=== PATIENT | female | born 1960 | race African-American/Black ===

== ENCOUNTER 2016-12-09 13:53 | Inpatient (IN) | payer MEDICAID, OTHER ==
[~2016-12-09] VITALS: Ht 170.2 cm; Wt 73.3 kg
[~2016-12-09 13:53] MED LIST: BENZ0.5T6 PO; DIPH50 PO
[2016-12-09] MEDS ORDERED: ACETAMINOPHEN 325 MG TABLET PO PRN (16:15)
[2016-12-09] MEDS ORDERED: PROMETHAZINE HCL 25 MG TABLET PO PRN (16:15)
[2016-12-09] MEDS ORDERED: MAG HYDROX/AL HYDROX/SIMETH ES 30 ML SUSPENSION UDCUP PO PRN (16:15)
[2016-12-09] MEDS ORDERED: HydrOXYzine PAMOATE 50 MG CAPSULE PO PRN (16:15)
[2016-12-09] MEDS ORDERED: FluPHENAZine DECANOATE 25 MG/ML IM ONE (16:15)
[2016-12-09] MEDS ORDERED: ZOLPIDEM TARTRATE 10 MG TABLET PO PRN (16:15)
[2016-12-09] MEDS ORDERED: GuaiFENesin/D-METHORPHAN [SUGAR-FREE] 200-20MG/10 ML SYRUP UDCUP PO PRN (16:15)
[2016-12-09] MEDS ORDERED: TUBERCULIN, PURIFIED PROTEIN DERIVATIVE 5 TU/0.1 ML SYG ID ONE (16:15)
[2016-12-09] MEDS ORDERED: MAGNESIUM HYDROXIDE SUSPENSION 30 ML UDCUP PO PRN (16:15)
[2016-12-09] MEDS ORDERED: LOPERAMIDE HCL 2 MG CAPSULE PO PRN (16:15)
[2016-12-09] MEDS: THIAMINE HCL 100 MG TABLET PO SCH (17:49)
[2016-12-09] MEDS: BENZTROPINE MESYLATE 2 MG TABLET PO SCH (18:02)
[2016-12-09] MEDS ORDERED: INFLUENZA VIRUS VACCINE QVS 2016-17 (3YR+)/PF 60 MCG/0.5 ML SYRINGE IM ONE (18:30)
[2016-12-09 18:31] VITALS: BP 129/89
[2016-12-09] MEDS ORDERED: FluPHENAZine HCL 5 MG TABLET PO SCH (21:00)
[2016-12-10 07:05] VITALS: BP 120/72
[2016-12-10 08:25] LABS: BASOPHILS % (AUTO) 0.8 % (0.0-2.0); EOSINOPHILS % (AUTO) 1.6 % (1.0-6.0); HEMATOCRIT 42.2 % (36-46); HEMOGLOBIN 13.6 g/dL (12.0-16.0); LYMPHOCYTES # (AUTO) 1.4 K/uL (1.0-4.8); LYMPHOCYTES % (AUTO) 38.8 % (22.0-44.0); MEAN CORPUSCULAR HEMOGLOBIN 27.2 pg (26.0-34.0); MEAN CORPUSCULAR HGB CONC 32.2 G/dL (31.0-37.0); MEAN CORPUSCULAR VOLUME 84 fL (80-100); MONOCYTES # (AUTO) 0.4 K/uL (0.1-1.0); MONOCYTES % (AUTO) 10.5 % (2.0-9.0); NEUTROPHILS # (AUTO) 1.7 K/uL (1.8-7.7); NEUTROPHILS % (AUTO) 48.3 % (40.0-70.0); PLATELET COUNT (AUTO) 181 K/uL (150-450); RED CELL DISTRIBUTION WIDTH 15.9 % (11.5-14.5); WHITE BLOOD COUNT (AUTO) 3.6 K/uL (4.5-11.0)
[2016-12-10 08:52] VITALS: BP 103/66
[2016-12-10] MEDS: FOLIC ACID 1 MG TABLET PO SCH (09:02)
[2016-12-10] MEDS: THIAMINE HCL 100 MG TABLET PO SCH ×2 (09:02→16:28)
[2016-12-10] MEDS: BENZTROPINE MESYLATE 2 MG TABLET PO SCH ×3 (09:02→16:28)
[2016-12-10] MEDS: MULTIVITAMINS WITH MINERALS, THERAPEUTIC TABLET PO SCH (09:03)
[2016-12-10] MEDS: NICOTINE 7 MG/24 HOUR PATCH TD SCH (09:09)
[2016-12-10 09:19] LABS: HEMOGLOBIN A1C 5.9 % (4.5-6.2)
[2016-12-10 09:42] LABS: ALANINE AMINOTRANSFERASE 36 U/L (12-78); ALBUMIN 3.8 g/dL (3.4-5.0); ANION GAP 8 mmol/L (8-16); ASPARTATE AMINOTRANSFERASE 34 U/L (15-37); BILIRUBIN,TOTAL 0.7 mg/dL (0.1-1.0); CALCIUM, TOTAL 9.3 mg/dL (8.8-10.5); CARBON DIOXIDE 26 mmol/L (22-29); CHLORIDE 105 mmol/L (98-107); CHOL/HDL RATIO 1.8 (3.9-5.7); CREATININE 0.79 mg/dL (0.60-1.30); GLOMERULAR FILTR. RATE CALC > 60 mL/min (>60); POTASSIUM 3.7 mmol/L (3.5-5.1); SODIUM SERUM 139 mmol/L (136-145); THYROID STIMULATING HORMONE 1.69 uIU/mL (0.36-3.74); TOTAL PROTEIN, SERUM 8.8 g/dL (6.4-8.2); UREA NITROGEN, BLOOD 12 mg/dL (7-18)
[2016-12-10] MEDS: LORazepam 2 MG TABLET PO PRN (09:43)
[2016-12-10] MEDS ORDERED: PALIPERIDONE 3 MG ER TABLET PO PRN (12:45)
[2016-12-10] MEDS ORDERED: FluPHENAZine HCL 2.5 MG/ML INJ IM PRN (12:45)
[2016-12-10 16:22] VITALS: BP 117/76
[2016-12-10] MEDS: FluPHENAZine HCL 5 MG TABLET PO SCH (20:29)
[2016-12-10] MEDS ORDERED: PALIPERIDONE 6 MG ER TABLET PO SCH (21:00)
[2016-12-11 05:43] VITALS: BP 124/78
[2016-12-11 08:34] VITALS: BP 101/56
[2016-12-11] MEDS: NICOTINE 7 MG/24 HOUR PATCH TD SCH (09:30)
[2016-12-11] MEDS: THIAMINE HCL 100 MG TABLET PO SCH ×2 (09:30→16:12)
[2016-12-11] MEDS: MULTIVITAMINS WITH MINERALS, THERAPEUTIC TABLET PO SCH (09:31)
[2016-12-11] MEDS: BENZTROPINE MESYLATE 2 MG TABLET PO SCH ×3 (09:31→16:12)
[2016-12-11] MEDS: FOLIC ACID 1 MG TABLET PO SCH (09:31)
[2016-12-11 16:00] VITALS: BP 118/75
[2016-12-11] MEDS: LORazepam 2 MG TABLET PO PRN (16:12)
[2016-12-11] MEDS: FluPHENAZine HCL 5 MG TABLET PO SCH (20:09)
[2016-12-12 06:30] VITALS: BP 115/72
[2016-12-12 08:42] VITALS: BP 101/63
[2016-12-12] MEDS: MULTIVITAMINS WITH MINERALS, THERAPEUTIC TABLET PO SCH (08:44)
[2016-12-12] MEDS: BENZTROPINE MESYLATE 2 MG TABLET PO SCH ×3 (08:44→16:22)
[2016-12-12] MEDS: NICOTINE 7 MG/24 HOUR PATCH TD SCH (08:44)
[2016-12-12] MEDS: THIAMINE HCL 100 MG TABLET PO SCH ×2 (08:44→16:22)
[2016-12-12] MEDS: FOLIC ACID 1 MG TABLET PO SCH (08:44)
[2016-12-12 16:49] VITALS: BP 108/68
[2016-12-12] MEDS: FluPHENAZine HCL 5 MG TABLET PO SCH (20:49)
[2016-12-13 07:10] VITALS: BP 102/78
[2016-12-13 08:50] VITALS: BP 118/65
[2016-12-13] MEDS: THIAMINE HCL 100 MG TABLET PO SCH ×2 (09:13→16:04)
[2016-12-13] MEDS: MULTIVITAMINS WITH MINERALS, THERAPEUTIC TABLET PO SCH (09:13)
[2016-12-13] MEDS: BENZTROPINE MESYLATE 2 MG TABLET PO SCH ×3 (09:13→16:05)
[2016-12-13] MEDS: FOLIC ACID 1 MG TABLET PO SCH (09:13)
[2016-12-13] MEDS: NICOTINE 7 MG/24 HOUR PATCH TD SCH (09:13)
[2016-12-13] MEDS: LORazepam 2 MG TABLET PO PRN (09:14)
[2016-12-13 16:09] VITALS: BP 112/69
[2016-12-13] MEDS ORDERED: FLUP2.5 PO (16:48)
[2016-12-13] MEDS ORDERED: BENZ2TAB10 PO (16:48)
[2016-12-13] MEDS ORDERED: FLUP5 PO (16:48)
[2016-12-13] MEDS: FluPHENAZine HCL 5 MG TABLET PO SCH (20:16)
[2016-12-14 06:32] VITALS: BP 114/71
[2016-12-14] MEDS: THIAMINE HCL 100 MG TABLET PO SCH (08:46)
[2016-12-14] MEDS: MULTIVITAMINS WITH MINERALS, THERAPEUTIC TABLET PO SCH (08:46)
[2016-12-14 08:47] VITALS: BP 100/62
[2016-12-14] MEDS: NICOTINE 7 MG/24 HOUR PATCH TD SCH (08:47)
[2016-12-14] MEDS: BENZTROPINE MESYLATE 2 MG TABLET PO SCH ×2 (08:47→12:53)
[2016-12-14] MEDS: FOLIC ACID 1 MG TABLET PO SCH (08:47)
[2016-12-14] MEDS ORDERED: NALTREXONE HCL 50 MG TABLET PO SCH (09:00)
[2016-12-14] MEDS ORDERED: BENZ2TAB10 PO (12:32)
[2016-12-14] MEDS ORDERED: FLUP5 PO (12:34)
[2016-12-14] MEDS ORDERED: FLUP2.5 PO (12:34)
[2016-12-14] MEDS ORDERED: NALT50TA10 PO (12:34)
[2016-12-23] MEDS ORDERED: FluPHENAZine DECANOATE 25 MG/ML IM SCH (09:00)
== END 2016-12-14 13:00 | disposition home or self-care (01) | DRG 750 ==
LOC: B3A 16:28 → EDSTATUS 16:30
PROVIDERS: ADMIT Psychiatry & Neurology Psychiatry; ATTEND Psychiatry & Neurology Psychiatry
PROC: 3E0234Z Introduction of Serum, Toxoid and Vaccine into Muscle, Percutaneous Approach (ICD-10-PCS; principal; 2016-12-10)
PROC: GZ51ZZZ Individual Psychotherapy, Behavioral (ICD-10-PCS; 2016-12-10)
DX: F20.0 Paranoid schizophrenia (principal); R45.851 Suicidal ideations; J44.9 Chronic obstructive pulmonary disease, unspecified; I10 Essential (primary) hypertension; G40.909 Epilepsy, unspecified, not intractable, without status epilepticus; B18.2 Chronic viral hepatitis C; E03.9 Hypothyroidism, unspecified; K59.00 Constipation, unspecified; G47.00 Insomnia, unspecified; F14.10 Cocaine abuse, uncomplicated; F17.210 Nicotine dependence, cigarettes, uncomplicated; Z71.51 Drug abuse counseling and surveillance of drug abuser; Z91.14 Patient's other noncompliance with medication regimen; Z88.8 Allergy status to other drugs, medicaments and biological substances; Z71.6 Tobacco abuse counseling; Z86.73 Personal history of transient ischemic attack (TIA), and cerebral infarction without residual deficits; Z23 Encounter for immunization
CPT/HCPCS: 83036; 84439; 84443; 86592; 90471; G0481; J2680

== ENCOUNTER 2018-12-29 18:46 | Emergency (ER) | payer MEDICAID ==
[~2018-12-29] VITALS: Ht 170.2 cm; Wt 54.5 kg
[~2018-12-29 18:46] MED LIST changes: -BENZ0.5T6 PO; +BENZ2TAB10 PO; -DIPH50 PO; +FLUP2.5 PO; +FLUP5 PO; +NALT50TA10 PO
[2018-12-29] MEDS ORDERED: DIPH25 PO (19:40)
[2018-12-29 20:01] LABS: APPEARANCE,URINE CLOUDY (CLEAR); BILIRUBIN,URINE NEGATIVE (NEGATIVE); GLUCOSE, URINE (UA) NEGATIVE (NEGATIVE); KETONES,URINE NEGATIVE (NEGATIVE); LEUKOCYTE ESTERASE ,URINE SMALL (NEGATIVE); NITRATE,URINE NEGATIVE (NEGATIVE); OCCULT BLOOD,URINE NEGATIVE (NEGATIVE); PROTEIN,URINE NEGATIVE (NEGATIVE)
[2018-12-29 20:24] LABS: BASOPHILS % (AUTO) 0.4 % (0.0-2.0); EOSINOPHILS % (AUTO) 1.9 % (1.0-6.0); HEMATOCRIT 36.5 % (36-46); HEMOGLOBIN 11.6 g/dL (12.0-16.0); LYMPHOCYTES # (AUTO) 1.2 K/uL (1.0-4.8); LYMPHOCYTES % (AUTO) 42.4 % (22.0-44.0); MEAN CORPUSCULAR HEMOGLOBIN 27.2 pg (26.0-34.0); MEAN CORPUSCULAR HGB CONC 31.9 G/dL (31.0-37.0); MEAN CORPUSCULAR VOLUME 85 fL (80-100); MONOCYTES # (AUTO) 0.3 K/uL (0.1-1.0); MONOCYTES % (AUTO) 10.1 % (2.0-9.0); NEUTROPHILS # (AUTO) 1.3 K/uL (1.8-7.7); NEUTROPHILS % (AUTO) 45.2 % (40.0-70.0); PLATELET COUNT (AUTO) 218 K/uL (150-450); RED BLOOD CELL COUNT(AUTO) 4.28 MIL/uL (4.00-5.20); RED CELL DISTRIBUTION WIDTH 14.1 % (11.5-14.5)
[2018-12-29 20:31] LABS: ANION GAP 3 mmol/L (8-16); CARBON DIOXIDE 31 mmol/L (22-29); CHLORIDE 105 mmol/L (98-107); CREATININE 0.94 mg/dL (0.60-1.30); GLOMERULAR FILTR. RATE CALC > 60 mL/min (>60); GLUCOSE,RANDOM 86 mg/dL (70-110); SODIUM SERUM 139 mmol/L (136-145); UREA NITROGEN, BLOOD 12 mg/dL (7-18)
[2018-12-29 20:35] LABS: RBC,URINE None Seen /HPF (0-2)
[2018-12-29 20:36] LABS: BACTERIA,URINE Moderate /HPF (None Seen); SQUAMOUS EPITHELIAL CELL,UR Moderate /LPF (None Seen)
[2018-12-29 20:37] LABS: ALANINE AMINOTRANSFERASE 15 U/L (12-78); ALBUMIN 3.2 g/dL (3.4-5.0); ALKALINE PHOSPHATASE 95 U/L (46-116); ASPARTATE AMINOTRANSFERASE 16 U/L (15-37); BILIRUBIN,TOTAL 0.2 mg/dL (0.1-1.0); LIPASE 136 U/L (73-393); TOTAL PROTEIN, SERUM 7.8 g/dL (6.4-8.2)
[2018-12-29 22:00] VITALS: BP 128/83
[2018-12-29] MEDS ORDERED: ONDANSETRON HCL 4 MG TABLET PO ONE (22:00)
[2018-12-29] MEDS ORDERED: ACETAMINOPHEN 325 MG TABLET PO ONE (22:00)
== END 2018-12-29 22:20 | disposition home or self-care (01) ==
LOC: EMS 18:47
DX: R10.84 Generalized abdominal pain (principal); R11.0 Nausea; J45.909 Unspecified asthma, uncomplicated; I10 Essential (primary) hypertension; F20.9 Schizophrenia, unspecified; F17.210 Nicotine dependence, cigarettes, uncomplicated; Z86.73 Personal history of transient ischemic attack (TIA), and cerebral infarction without residual deficits; Z88.8 Allergy status to other drugs, medicaments and biological substances
CPT/HCPCS: 36415; 80053; 81001; 83690; 84484; 85025; 87086; 93005; 99284; Q0162

== ENCOUNTER 2019-09-29 11:58 | Emergency (ER) | payer MEDICAID ==
[~2019-09-29] VITALS: Ht 167.6 cm; Wt 79.5 kg
[~2019-09-29 11:58] MED LIST changes: -BENZ2TAB10 PO; +DIPH25 PO; -NALT50TA10 PO
[2019-09-29 12:54] LABS: BASOPHILS % (AUTO) 0.6 % (0.0-2.0); EOSINOPHILS % (AUTO) 0.8 % (1.0-6.0); HEMOGLOBIN 11.7 g/dL (12.0-16.0); LYMPHOCYTES # (AUTO) 1.2 K/uL (1.0-4.8); LYMPHOCYTES % (AUTO) 35.2 % (22.0-44.0); MEAN CORPUSCULAR HEMOGLOBIN 27.4 pg (26.0-34.0); MEAN CORPUSCULAR HGB CONC 33.5 G/dL (31.0-37.0); MEAN CORPUSCULAR VOLUME 82 fL (80-100); MONOCYTES # (AUTO) 0.4 K/uL (0.1-1.0); MONOCYTES % (AUTO) 11.4 % (2.0-9.0); NEUTROPHILS # (AUTO) 1.7 K/uL (1.8-7.7); PLATELET COUNT (AUTO) 197 K/uL (150-450); RED BLOOD CELL COUNT(AUTO) 4.28 MIL/uL (4.00-5.20); RED CELL DISTRIBUTION WIDTH 15.5 % (11.5-14.5)
[2019-09-29 13:04] LABS: ANION GAP 8 mmol/L (8-16); CALCIUM, TOTAL 8.8 mg/dL (8.8-10.5); CARBON DIOXIDE 26 mmol/L (22-29); CHLORIDE 102 mmol/L (98-107); CREATININE 0.86 mg/dL (0.60-1.30); GLOMERULAR FILTR. RATE CALC > 60 mL/min (>60); GLUCOSE,RANDOM 84 mg/dL (70-110); POTASSIUM 3.3 mmol/L (3.5-5.1); SODIUM SERUM 136 mmol/L (136-145); UREA NITROGEN, BLOOD 12 mg/dL (7-18)
[2019-09-29 13:10] LABS: ALANINE AMINOTRANSFERASE 19 U/L (12-78); ALBUMIN 3.9 g/dL (3.4-5.0); ALKALINE PHOSPHATASE 95 U/L (46-116); ASPARTATE AMINOTRANSFERASE 22 U/L (15-37); BILIRUBIN,TOTAL 0.3 mg/dL (0.1-1.0); TOTAL PROTEIN, SERUM 8.5 g/dL (6.4-8.2)
[2019-09-29 14:41] VITALS: BP 128/76
[2019-09-29] MEDS ORDERED: IBUPROFEN 400 MG TABLET PO ONE (15:15)
[2019-09-29] MEDS ORDERED: LORazepam 1 MG TABLET PO ONE (15:15)
== END 2019-09-29 16:20 | disposition home or self-care (01) ==
LOC: EMS 12:02
DX: F20.9 Schizophrenia, unspecified (principal); M25.561 Pain in right knee; I10 Essential (primary) hypertension; J45.909 Unspecified asthma, uncomplicated; F17.210 Nicotine dependence, cigarettes, uncomplicated; Z86.73 Personal history of transient ischemic attack (TIA), and cerebral infarction without residual deficits; Z98.890 Other specified postprocedural states; Z79.899 Other long term (current) drug therapy; Z88.8 Allergy status to other drugs, medicaments and biological substances
CPT/HCPCS: 36415; 80053; 85025; 99284; G0480

== ENCOUNTER 2019-12-20 13:33 | Emergency (ER) | payer MEDICAID ==
[~2019-12-20] VITALS: Ht 170.2 cm; Wt 72.7 kg
[2019-12-20 17:35] VITALS: BP 146/86
== END 2019-12-20 17:49 | disposition home or self-care (01) ==
LOC: EMS 13:34
DX: H11.31 Conjunctival hemorrhage, right eye (principal); J45.909 Unspecified asthma, uncomplicated; I10 Essential (primary) hypertension; F20.9 Schizophrenia, unspecified; F17.210 Nicotine dependence, cigarettes, uncomplicated; Z86.73 Personal history of transient ischemic attack (TIA), and cerebral infarction without residual deficits; Z88.8 Allergy status to other drugs, medicaments and biological substances; Y04.2XXA Assault by strike against or bumped into by another person, initial encounter; Y93.89 Activity, other specified; Y92.89 Other specified places as the place of occurrence of the external cause; Y99.8 Other external cause status

== ENCOUNTER 2020-04-30 17:35 | Emergency (ER) | payer MEDICAID ==
[~2020-04-30] VITALS: Ht 170.2 cm; Wt 75.0 kg
[2020-04-30] MEDS ORDERED: LIDOCAINE 1%/EPI 1:200,000/PF 30 ML VIAL INJ ONE (18:30)
[2020-04-30] MEDS ORDERED: PERTUSS(ACELL),DIPH,TET VAC/PF 0.5 ML VIAL IM ONE (18:30)
[2020-04-30] MEDS ORDERED: MORPHINE SULFATE 4 MG/ML SYRINGE IVP ONE (20:00)
[2020-04-30 20:13] VITALS: BP 159/87
[2020-04-30] MEDS ORDERED: AMPICILLIN SODIUM/SULBACTAM NA 3 GM in SODIUM CHLORIDE 0.9% 100 ML IV ONE (20:30)
== END 2020-04-30 21:26 | disposition short-term general hospital (02) ==
LOC: EMS 17:35
DX: S02.40EA Zygomatic fracture, right side, initial encounter for closed fracture (principal); S02.40FA Zygomatic fracture, left side, initial encounter for closed fracture; S02.841A Fracture of lateral orbital wall, right side, initial encounter for closed fracture; S02.31XA Fracture of orbital floor, right side, initial encounter for closed fracture; S02.40CA Maxillary fracture, right side, initial encounter for closed fracture; S01.01XA Laceration without foreign body of scalp, initial encounter; S11.91XA Laceration without foreign body of unspecified part of neck, initial encounter; I10 Essential (primary) hypertension; J45.909 Unspecified asthma, uncomplicated; F20.9 Schizophrenia, unspecified; F17.210 Nicotine dependence, cigarettes, uncomplicated; Z88.8 Allergy status to other drugs, medicaments and biological substances; Y04.0XXA Assault by unarmed brawl or fight, initial encounter; Y93.89 Activity, other specified; Y92.89 Other specified places as the place of occurrence of the external cause; Y99.8 Other external cause status
CPT/HCPCS: 70450; 70486; 90471; 90715; 96374; 96375; 99173; 99285; J0295; J2270; J3490; J7050

== ENCOUNTER 2020-10-28 10:42 | Emergency (ER) | payer MEDICAID ==
[~2020-10-28] VITALS: Ht 172.7 cm; Wt 70.5 kg
[2020-10-28] MEDS ORDERED: DIPH25CA85 PO (10:49)
[2020-10-28 11:46] VITALS: BP 105/64
== END 2020-10-28 11:56 | disposition home or self-care (01) ==
LOC: EMS 10:50
DX: L84 Corns and callosities (principal); F20.9 Schizophrenia, unspecified; J45.909 Unspecified asthma, uncomplicated; I10 Essential (primary) hypertension; F17.210 Nicotine dependence, cigarettes, uncomplicated; Z88.8 Allergy status to other drugs, medicaments and biological substances
CPT/HCPCS: Z7502

== ENCOUNTER 2021-03-18 20:34 | Emergency (ER) | payer MEDICAID ==
[~2021-03-18] VITALS: Ht 170.2 cm; Wt 77.3 kg
[~2021-03-18 20:34] MED LIST changes: -DIPH25 PO; +DIPH25CA85 PO; -FLUP2.5 PO; -FLUP5 PO
[2021-03-18 21:48] LABS: BASOPHILS % (AUTO) 0.7 % (0.0-2.0); EOSINOPHILS % (AUTO) 2.1 % (1.0-6.0); HEMATOCRIT 36.4 % (36-46); HEMOGLOBIN 11.7 g/dL (12.0-16.0); LYMPHOCYTES # (AUTO) 1.2 K/uL (1.0-4.8); MEAN CORPUSCULAR HEMOGLOBIN 27.1 pg (26.0-34.0); MEAN CORPUSCULAR HGB CONC 32.1 G/dL (31.0-37.0); MEAN CORPUSCULAR VOLUME 84 fL (80-100); MONOCYTES # (AUTO) 0.3 K/uL (0.1-1.0); MONOCYTES % (AUTO) 10.2 % (2.0-9.0); NEUTROPHILS # (AUTO) 1.4 K/uL (1.8-7.7); PLATELET COUNT (AUTO) 216 K/uL (150-450); RED BLOOD CELL COUNT(AUTO) 4.33 MIL/uL (4.00-5.20); RED CELL DISTRIBUTION WIDTH 15.3 % (11.5-14.5)
[2021-03-18 21:59] LABS: ANION GAP 10 mmol/L (8-16); CALCIUM, TOTAL 8.7 mg/dL (8.8-10.5); CARBON DIOXIDE 25 mmol/L (22-29); CHLORIDE 102 mmol/L (98-107); CREATININE 0.89 mg/dL (0.60-1.30); GLOMERULAR FILTR. RATE CALC > 60 mL/min (>60); GLUCOSE,RANDOM 96 mg/dL (70-110); POTASSIUM 3.1 mmol/L (3.5-5.1); SODIUM SERUM 137 mmol/L (136-145); UREA NITROGEN, BLOOD 7 mg/dL (7-18)
[2021-03-18 22:06] LABS: ALANINE AMINOTRANSFERASE 121 U/L (12-78); ALBUMIN 3.7 g/dL (3.4-5.0); ALKALINE PHOSPHATASE 81 U/L (46-116); ASPARTATE AMINOTRANSFERASE 116 U/L (15-37); BILIRUBIN,TOTAL 0.4 mg/dL (0.1-1.0); TOTAL PROTEIN, SERUM 9.1 g/dL (6.4-8.2)
[2021-03-19] MEDS ORDERED: POTASSIUM CHLORIDE 20 MEQ ER TABLET PO ONE (00:15)
[2021-03-19 00:19] LABS: AMPHET/METH SCREEN,URINE POSITIVE (NEGATIVE); BARBITURATE SCREEN, URINE NEGATIVE (NEGATIVE); BENZODIAZEPINES SCREEN,URINE NEGATIVE (NEGATIVE); CANNABINOID SCREEN,URINE NEGATIVE (NEGATIVE); COCAINE SCREEN,URINE NEGATIVE (NEGATIVE); METHADONE SCREEN, URINE NEGATIVE (NEGATIVE); OPIATE SCREEN,URINE NEGATIVE (NEGATIVE)
[2021-03-19 00:23] LABS: PHENCYCLIDINE SCREEN,URINE POSITIVE (NEGATIVE)
[2021-03-19 01:10] VITALS: BP 152/107
== END 2021-03-19 02:23 | disposition home or self-care (01) ==
LOC: EMS 20:35
DX: F20.9 Schizophrenia, unspecified (principal); F16.10 Hallucinogen abuse, uncomplicated; F15.10 Other stimulant abuse, uncomplicated; J45.909 Unspecified asthma, uncomplicated; I10 Essential (primary) hypertension; F17.210 Nicotine dependence, cigarettes, uncomplicated; Z86.73 Personal history of transient ischemic attack (TIA), and cerebral infarction without residual deficits
CPT/HCPCS: 36415; 80053; 80307; 85025; 99283; G0480

== ENCOUNTER 2021-05-24 20:42 | Inpatient (IN) | payer MEDICAID ==
[~2021-05-24] VITALS: Ht 170.2 cm; Wt 69.7 kg
[2021-05-24] MEDS ORDERED: LORazepam 2 MG TABLET PO PRN (22:30)
[2021-05-24] MEDS ORDERED: OLANZapine 5 MG RAPDIS TABLET PO PRN (22:30)
[2021-05-24] MEDS ORDERED: ZOLPIDEM TARTRATE 10 MG TABLET PO PRN (22:30)
[2021-05-25 08:11] LABS: BASOPHILS % (AUTO) 0.7 % (0.0-2.0); EOSINOPHILS % (AUTO) 2.3 % (1.0-6.0); HEMATOCRIT 37.4 % (36-46); HEMOGLOBIN 12.1 g/dL (12.0-16.0); LYMPHOCYTES % (AUTO) 35.4 % (22.0-44.0); MEAN CORPUSCULAR HGB CONC 32.4 G/dL (31.0-37.0); MEAN CORPUSCULAR VOLUME 83 fL (80-100); MONOCYTES # (AUTO) 0.4 K/uL (0.1-1.0); NEUTROPHILS # (AUTO) 1.5 K/uL (1.8-7.7); NEUTROPHILS % (AUTO) 49.6 % (40.0-70.0); PLATELET COUNT (AUTO) 198 K/uL (150-450); RED BLOOD CELL COUNT(AUTO) 4.49 MIL/uL (4.00-5.20); RED CELL DISTRIBUTION WIDTH 15.5 % (11.5-14.5)
[2021-05-25 08:13] LABS: ANION GAP 9 mmol/L (8-16); CALCIUM, TOTAL 8.7 mg/dL (8.8-10.5); CARBON DIOXIDE 27 mmol/L (22-29); CHLORIDE 103 mmol/L (98-107); CREATININE 0.71 mg/dL (0.60-1.30); GLOMERULAR FILTR. RATE CALC > 60 mL/min (>60); GLUCOSE,RANDOM 94 mg/dL (70-110); POTASSIUM 3.6 mmol/L (3.5-5.1); SODIUM SERUM 139 mmol/L (136-145); UREA NITROGEN, BLOOD 7 mg/dL (7-18)
[2021-05-25 08:22] LABS: CHOL/HDL RATIO 2.5 (3.9-5.7)
[2021-05-25 08:29] LABS: ALANINE AMINOTRANSFERASE 143 U/L (12-78); ALBUMIN 3.1 g/dL (3.4-5.0); ALKALINE PHOSPHATASE 85 U/L (46-116); ASPARTATE AMINOTRANSFERASE 148 U/L (15-37); BILIRUBIN,TOTAL 0.4 mg/dL (0.1-1.0); CHOL/HDL RATIO 2.5 (3.9-5.7); CHOLESTEROL 182 mg/dL (131-200); FREE T4 (FREE THYROXINE) 0.99 ng/dL (0.76-1.46); HDL CHOLESTEROL 74 mg/dL (40-60); LDL CHOL (CALC.) 97 mg/dL (0-130); THYROID STIMULATING HORMONE 1.09 uIU/mL (0.36-3.74); TOTAL PROTEIN, SERUM 8.7 g/dL (6.4-8.2); TRIGLYCERIDES 57 mg/dL (15-150)
[2021-05-25 08:36] LABS: COVID AG,FIA SOURCE NASOPHARYNGEAL
[2021-05-25 16:15] VITALS: BP 121/82
[2021-05-25] MEDS ORDERED: LOPERAMIDE HCL 2 MG CAPSULE PO PRN (16:30)
[2021-05-25] MEDS ORDERED: PROMETHAZINE HCL 25 MG TABLET PO PRN (16:30)
[2021-05-25] MEDS ORDERED: GuaiFENesin/D-METHORPHAN [SUGAR-FREE] 200-20MG/10 ML SYRUP UDCUP PO PRN ×2 (16:30→22:45)
[2021-05-25] MEDS ORDERED: TUBERCULIN, PURIFIED PROTEIN DERIVATIVE 5 TU/0.1 ML SYRINGE ID ONE (16:30)
[2021-05-25] MEDS ORDERED: MAG HYDROX/AL HYDROX/SIMETH ES 30 ML SUSPENSION UDCUP PO PRN (16:30)
[2021-05-25] MEDS ORDERED: MAGNESIUM HYDROXIDE SUSPENSION 30 ML UDCUP PO PRN (16:30)
[2021-05-25] MEDS ORDERED: HydrOXYzine PAMOATE 50 MG CAPSULE PO PRN (16:30)
[2021-05-25] MEDS: THIAMINE 100 MG TABLET PO SCH (17:32)
[2021-05-25 18:45] VITALS: BP 137/84
[2021-05-25 18:50] VITALS: BP 137/84
[2021-05-25] MEDS ORDERED: PALIPERIDONE PALMITATE 234 MG/1.5 ML SYRINGE IM ONE (19:30)
[2021-05-25] MEDS: CEPHALEXIN MONOHYDRATE 500 MG CAPSULE PO SCH (20:54)
[2021-05-25] MEDS: MELATONIN 5 MG TABLET PO SCH (20:54)
[2021-05-25] MEDS: DIVALPROEX SODIUM 500 MG ER TABLET PO SCH (20:54)
[2021-05-25] MEDS: OLANZapine 5 MG RAPDIS TABLET PO SCH (20:55)
[2021-05-26 06:13] LABS: CHOL/HDL RATIO 2.4 (3.9-5.7); FREE T4 (FREE THYROXINE) 0.95 ng/dL (0.76-1.46); THYROID STIMULATING HORMONE 1.09 uIU/mL (0.36-3.74)
[2021-05-26 06:26] LABS: HEMOGLOBIN A1C 5.9 % (3.8-5.6)
[2021-05-26 09:00] VITALS: BP 107/68
[2021-05-26] MEDS: FOLIC ACID 1 MG TABLET PO SCH (09:44)
[2021-05-26] MEDS: OMEGA-3/DHA/EPA/FISH OIL 1,000 MG CAPSULE PO SCH (09:44)
[2021-05-26] MEDS: NALTREXONE HCL 50 MG TABLET PO SCH (09:44)
[2021-05-26] MEDS: CEPHALEXIN MONOHYDRATE 500 MG CAPSULE PO SCH ×4 (09:44→20:48)
[2021-05-26] MEDS: MULTIVITAMINS WITH MINERALS, THERAPEUTIC TABLET PO SCH (09:44)
[2021-05-26] MEDS: THIAMINE 100 MG TABLET PO SCH ×2 (09:44→16:27)
[2021-05-26 12:40] VITALS: BP 112/72
[2021-05-26] MEDS: ACETAMINOPHEN 325 MG TABLET PO PRN (13:56)
[2021-05-26 16:40] VITALS: BP 113/65
[2021-05-26] MEDS: MELATONIN 5 MG TABLET PO SCH (20:48)
[2021-05-26] MEDS: OLANZapine 5 MG RAPDIS TABLET PO SCH (20:48)
[2021-05-26] MEDS: DIVALPROEX SODIUM 500 MG ER TABLET PO SCH (20:49)
[2021-05-27 08:06] LABS: RPR QUANT. (TITER) 1:32 (NonRea<1:1)
[2021-05-27 08:14] VITALS: BP 134/92
[2021-05-27] MEDS: CEPHALEXIN MONOHYDRATE 500 MG CAPSULE PO SCH ×4 (09:40→20:47)
[2021-05-27] MEDS: ZINC SULFATE 220 MG CAPSULE PO SCH (09:40)
[2021-05-27] MEDS: ASCORBIC ACID 500 MG TABLET PO SCH (09:41)
[2021-05-27] MEDS: FOLIC ACID 1 MG TABLET PO SCH (09:41)
[2021-05-27] MEDS: ACETAMINOPHEN 325 MG TABLET PO PRN (09:41)
[2021-05-27] MEDS: OMEGA-3/DHA/EPA/FISH OIL 1,000 MG CAPSULE PO SCH (09:43)
[2021-05-27] MEDS: THIAMINE 100 MG TABLET PO SCH ×2 (09:44→16:26)
[2021-05-27] MEDS: NALTREXONE HCL 50 MG TABLET PO SCH (09:44)
[2021-05-27] MEDS: MULTIVITAMINS WITH MINERALS, THERAPEUTIC TABLET PO SCH (09:46)
[2021-05-27 16:00] VITALS: BP 115/85
[2021-05-27] MEDS: PENICILLIN G BENZATHINE LA 2,400,000 UNITS/4 ML SYRINGE IM SCH (19:48)
[2021-05-27 20:00] VITALS: BP 119/89
[2021-05-27] MEDS: MELATONIN 5 MG TABLET PO SCH (20:47)
[2021-05-27] MEDS: OLANZapine 5 MG RAPDIS TABLET PO SCH (20:47)
[2021-05-27] MEDS: DIVALPROEX SODIUM 500 MG ER TABLET PO SCH (20:47)
[2021-05-27] MEDS: TraZODone HCL 50 MG TABLET PO SCH (22:04)
[2021-05-28] MEDS: ASCORBIC ACID 500 MG TABLET PO SCH (08:35)
[2021-05-28] MEDS: ACETAMINOPHEN 325 MG TABLET PO PRN (08:35)
[2021-05-28] MEDS: THIAMINE 100 MG TABLET PO SCH ×2 (08:35→16:15)
[2021-05-28] MEDS: FOLIC ACID 1 MG TABLET PO SCH (08:36)
[2021-05-28] MEDS: OMEGA-3/DHA/EPA/FISH OIL 1,000 MG CAPSULE PO SCH (08:36)
[2021-05-28] MEDS: MULTIVITAMINS WITH MINERALS, THERAPEUTIC TABLET PO SCH (08:36)
[2021-05-28] MEDS: CEPHALEXIN MONOHYDRATE 500 MG CAPSULE PO SCH ×4 (08:36→20:54)
[2021-05-28] MEDS: NALTREXONE HCL 50 MG TABLET PO SCH ×2 (08:38→09:08)
[2021-05-28] MEDS: ZINC SULFATE 220 MG CAPSULE PO SCH (08:39)
[2021-05-28 08:55] VITALS: BP 107/64
[2021-05-28] MEDS: TraZODone HCL 50 MG TABLET PO SCH (20:41)
[2021-05-28] MEDS: OLANZapine 5 MG RAPDIS TABLET PO SCH (20:41)
[2021-05-28] MEDS: MELATONIN 5 MG TABLET PO SCH (20:41)
[2021-05-28] MEDS: DIVALPROEX SODIUM 500 MG ER TABLET PO SCH (20:41)
[2021-05-29] MEDS: PALIPERIDONE PALMITATE 156 MG/ML SYRINGE IM ONE ×2 (10:08→10:20)
[2021-05-29] MEDS: NALTREXONE HCL 50 MG TABLET PO SCH (10:08)
[2021-05-29] MEDS: ZINC SULFATE 220 MG CAPSULE PO SCH (10:08)
[2021-05-29] MEDS: CEPHALEXIN MONOHYDRATE 500 MG CAPSULE PO SCH ×5 (10:10→21:10)
[2021-05-29] MEDS: THIAMINE 100 MG TABLET PO SCH ×2 (10:10→16:30)
[2021-05-29] MEDS: FOLIC ACID 1 MG TABLET PO SCH (10:10)
[2021-05-29] MEDS: OMEGA-3/DHA/EPA/FISH OIL 1,000 MG CAPSULE PO SCH (10:10)
[2021-05-29] MEDS: ASCORBIC ACID 500 MG TABLET PO SCH (10:10)
[2021-05-29] MEDS: MULTIVITAMINS WITH MINERALS, THERAPEUTIC TABLET PO SCH (10:11)
[2021-05-29] MEDS: OLANZapine 5 MG RAPDIS TABLET PO SCH (21:00)
[2021-05-29] MEDS: MELATONIN 5 MG TABLET PO SCH (21:00)
[2021-05-29] MEDS: TraZODone HCL 50 MG TABLET PO SCH (21:00)
[2021-05-29] MEDS: DIVALPROEX SODIUM 500 MG ER TABLET PO SCH (21:00)
[2021-05-30] MEDS: NALTREXONE HCL 50 MG TABLET PO SCH (09:00)
[2021-05-30] MEDS: FOLIC ACID 1 MG TABLET PO SCH (09:00)
[2021-05-30] MEDS: OMEGA-3/DHA/EPA/FISH OIL 1,000 MG CAPSULE PO SCH (09:00)
[2021-05-30] MEDS: ZINC SULFATE 220 MG CAPSULE PO SCH (09:00)
[2021-05-30] MEDS: MULTIVITAMINS WITH MINERALS, THERAPEUTIC TABLET PO SCH (09:00)
[2021-05-30] MEDS: THIAMINE 100 MG TABLET PO SCH ×2 (09:00→16:43)
[2021-05-30] MEDS: ASCORBIC ACID 500 MG TABLET PO SCH (09:00)
[2021-05-30] MEDS: CEPHALEXIN MONOHYDRATE 500 MG CAPSULE PO SCH ×4 (09:00→21:00)
[2021-05-30] MEDS: OLANZapine 5 MG RAPDIS TABLET PO SCH (21:00)
[2021-05-30] MEDS: TraZODone HCL 50 MG TABLET PO SCH (21:00)
[2021-05-30] MEDS: MELATONIN 5 MG TABLET PO SCH (21:00)
[2021-05-30] MEDS: FluPHENAZine HCL 5 MG TABLET PO SCH (21:00)
[2021-05-30] MEDS: DIVALPROEX SODIUM 500 MG ER TABLET PO SCH (21:00)
[2021-05-31] MEDS: CEPHALEXIN MONOHYDRATE 500 MG CAPSULE PO SCH ×4 (08:08→21:16)
[2021-05-31] MEDS: FluPHENAZine HCL 5 MG TABLET PO SCH ×2 (08:09→21:00)
[2021-05-31 08:55] VITALS: BP 143/93
[2021-05-31] MEDS: ASCORBIC ACID 500 MG TABLET PO SCH (09:00)
[2021-05-31] MEDS: FOLIC ACID 1 MG TABLET PO SCH (09:00)
[2021-05-31] MEDS: MULTIVITAMINS WITH MINERALS, THERAPEUTIC TABLET PO SCH (09:00)
[2021-05-31] MEDS: ZINC SULFATE 220 MG CAPSULE PO SCH (09:00)
[2021-05-31] MEDS: OMEGA-3/DHA/EPA/FISH OIL 1,000 MG CAPSULE PO SCH (09:00)
[2021-05-31] MEDS: NALTREXONE HCL 50 MG TABLET PO SCH (09:00)
[2021-05-31] MEDS: THIAMINE 100 MG TABLET PO SCH ×2 (09:00→16:30)
[2021-05-31 16:54] VITALS: BP 141/78
[2021-05-31 16:56] VITALS: BP 141/78
[2021-05-31] MEDS ORDERED: TraZODone HCL 100 MG TABLET PO PRN (18:30)
[2021-05-31] MEDS: MELATONIN 5 MG TABLET PO SCH (21:00)
[2021-05-31] MEDS: DIVALPROEX SODIUM 500 MG ER TABLET PO SCH (21:00)
[2021-05-31] MEDS: OLANZapine 5 MG RAPDIS TABLET PO SCH (21:00)
[2021-05-31] MEDS: TraZODone HCL 100 MG TABLET PO SCH (21:16)
[2021-06-01 08:22] VITALS: BP 126/80
[2021-06-01] MEDS: THIAMINE 100 MG TABLET PO SCH ×2 (09:00→16:28)
[2021-06-01] MEDS: ZINC SULFATE 220 MG CAPSULE PO SCH (09:00)
[2021-06-01] MEDS: MULTIVITAMINS WITH MINERALS, THERAPEUTIC TABLET PO SCH (09:00)
[2021-06-01] MEDS: NALTREXONE HCL 50 MG TABLET PO SCH (09:00)
[2021-06-01] MEDS: OMEGA-3/DHA/EPA/FISH OIL 1,000 MG CAPSULE PO SCH (09:00)
[2021-06-01] MEDS: FluPHENAZine HCL 5 MG TABLET PO SCH ×2 (09:00→20:36)
[2021-06-01] MEDS: CEPHALEXIN MONOHYDRATE 500 MG CAPSULE PO SCH ×3 (09:00→16:28)
[2021-06-01] MEDS: FOLIC ACID 1 MG TABLET PO SCH (09:00)
[2021-06-01] MEDS: ASCORBIC ACID 500 MG TABLET PO SCH (09:00)
[2021-06-01 16:00] VITALS: BP 106/74
[2021-06-01] MEDS: TraZODone HCL 100 MG TABLET PO SCH (20:32)
[2021-06-01] MEDS: OLANZapine 5 MG RAPDIS TABLET PO SCH (20:36)
[2021-06-01] MEDS: MELATONIN 5 MG TABLET PO SCH (20:37)
[2021-06-01] MEDS: DIVALPROEX SODIUM 500 MG ER TABLET PO SCH (20:37)
[2021-06-02 08:04] VITALS: BP 109/75
[2021-06-02] MEDS: ZINC SULFATE 220 MG CAPSULE PO SCH (09:00)
[2021-06-02] MEDS: ASCORBIC ACID 500 MG TABLET PO SCH (09:00)
[2021-06-02] MEDS: NALTREXONE HCL 50 MG TABLET PO SCH (09:00)
[2021-06-02] MEDS: FluPHENAZine HCL 5 MG TABLET PO SCH ×2 (09:00→21:00)
[2021-06-02] MEDS: FOLIC ACID 1 MG TABLET PO SCH (09:00)
[2021-06-02] MEDS: OMEGA-3/DHA/EPA/FISH OIL 1,000 MG CAPSULE PO SCH (09:00)
[2021-06-02] MEDS: MULTIVITAMINS WITH MINERALS, THERAPEUTIC TABLET PO SCH (09:00)
[2021-06-02] MEDS: THIAMINE 100 MG TABLET PO SCH ×2 (09:00→16:54)
[2021-06-02] MEDS: OLANZapine 5 MG RAPDIS TABLET PO SCH (21:00)
[2021-06-02] MEDS: MELATONIN 5 MG TABLET PO SCH (21:00)
[2021-06-02] MEDS: TraZODone HCL 50 MG TABLET PO SCH (21:00)
[2021-06-02] MEDS: DIVALPROEX SODIUM 500 MG ER TABLET PO SCH (21:00)
[2021-06-03 08:07] VITALS: BP 115/82
[2021-06-03] MEDS: OMEGA-3/DHA/EPA/FISH OIL 1,000 MG CAPSULE PO SCH (09:00)
[2021-06-03] MEDS: NALTREXONE HCL 50 MG TABLET PO SCH (09:47)
[2021-06-03] MEDS: ZINC SULFATE 220 MG CAPSULE PO SCH (09:47)
[2021-06-03] MEDS: FluPHENAZine HCL 5 MG TABLET PO SCH ×2 (09:47→20:08)
[2021-06-03] MEDS: THIAMINE 100 MG TABLET PO SCH ×2 (09:50→16:00)
[2021-06-03] MEDS: FOLIC ACID 1 MG TABLET PO SCH (09:50)
[2021-06-03] MEDS: ASCORBIC ACID 500 MG TABLET PO SCH (09:50)
[2021-06-03] MEDS: MULTIVITAMINS WITH MINERALS, THERAPEUTIC TABLET PO SCH (09:50)
[2021-06-03] MEDS: PENICILLIN G BENZATHINE LA 2,400,000 UNITS/4 ML SYRINGE IM SCH (11:55)
[2021-06-03 16:50] VITALS: BP 100/66
[2021-06-03] MEDS ORDERED: PALIPERIDONE PALMITATE 234 MG/1.5 ML SYRINGE IM ONE (18:45)
[2021-06-03] MEDS: TraZODone HCL 50 MG TABLET PO SCH (20:11)
[2021-06-03] MEDS: OLANZapine 5 MG RAPDIS TABLET PO SCH (20:12)
[2021-06-03] MEDS: DIVALPROEX SODIUM 500 MG ER TABLET PO SCH (20:12)
[2021-06-03] MEDS: MELATONIN 5 MG TABLET PO SCH (20:12)
[2021-06-03] MEDS ORDERED: PALIPERIDONE PALMITATE 156 MG/ML SYRINGE IM ONE (21:00)
[2021-06-04 08:20] VITALS: BP 120/79
[2021-06-04] MEDS: THIAMINE 100 MG TABLET PO SCH (08:24)
[2021-06-04] MEDS: MULTIVITAMINS WITH MINERALS, THERAPEUTIC TABLET PO SCH (08:24)
[2021-06-04] MEDS: NALTREXONE HCL 50 MG TABLET PO SCH (08:24)
[2021-06-04] MEDS: ASCORBIC ACID 500 MG TABLET PO SCH (08:24)
[2021-06-04] MEDS: OMEGA-3/DHA/EPA/FISH OIL 1,000 MG CAPSULE PO SCH (08:24)
[2021-06-04] MEDS: FOLIC ACID 1 MG TABLET PO SCH (08:24)
[2021-06-04] MEDS: FluPHENAZine HCL 5 MG TABLET PO SCH ×2 (08:24→20:24)
[2021-06-04] MEDS: ZINC SULFATE 220 MG CAPSULE PO SCH (08:24)
[2021-06-04 09:26] LABS: COVID AG,FIA SOURCE NASAL SWAB
[2021-06-04 16:24] VITALS: BP 138/82
[2021-06-04] MEDS ORDERED: FLUP5TAB8 PO (18:46)
[2021-06-04] MEDS ORDERED: MELA5TAB3 PO (18:46)
[2021-06-04] MEDS ORDERED: OMEG-135 PO (18:46)
[2021-06-04] MEDS ORDERED: TRAZ-252 PO (18:46)
[2021-06-04] MEDS ORDERED: DIVA-80 PO (18:46)
[2021-06-04] MEDS ORDERED: NALT50TA PO (18:48)
[2021-06-04] MEDS ORDERED: PALI117D IM (18:48)
[2021-06-04] MEDS: TraZODone HCL 50 MG TABLET PO SCH (20:23)
[2021-06-04] MEDS: DIVALPROEX SODIUM 500 MG ER TABLET PO SCH (20:23)
[2021-06-04] MEDS: MELATONIN 5 MG TABLET PO SCH (20:24)
[2021-06-04] MEDS: OLANZapine 5 MG RAPDIS TABLET PO SCH (20:24)
[2021-06-05] MEDS: NALTREXONE HCL 50 MG TABLET PO SCH (08:07)
[2021-06-05] MEDS: ASCORBIC ACID 500 MG TABLET PO SCH (08:07)
[2021-06-05] MEDS: OMEGA-3/DHA/EPA/FISH OIL 1,000 MG CAPSULE PO SCH (08:07)
[2021-06-05] MEDS: ZINC SULFATE 220 MG CAPSULE PO SCH (08:07)
[2021-06-05] MEDS: FluPHENAZine HCL 5 MG TABLET PO SCH (08:07)
[2021-06-05] MEDS: MULTIVITAMINS WITH MINERALS, THERAPEUTIC TABLET PO SCH (08:07)
[2021-06-05 08:27] VITALS: BP 124/89
[2021-06-05] MEDS ORDERED: PGLA4I IM (11:17)
[2021-06-07] MEDS ORDERED: PALIPERIDONE PALMITATE 156 MG/ML SYRINGE IM ONE (09:00)
== END 2021-06-05 13:15 | disposition home or self-care (01) | DRG 750 ==
LOC: EMS 20:44 → B3A 05-25 03:17 → 3EC 05-25 18:25
PROVIDERS: ADMIT Psychiatry & Neurology Psychiatry; ATTEND Psychiatry & Neurology Psychiatry
DX: F25.0 Schizoaffective disorder, bipolar type (principal); L98.419 Non-pressure chronic ulcer of buttock with unspecified severity; B19.20 Unspecified viral hepatitis C without hepatic coma; E03.9 Hypothyroidism, unspecified; Z20.822 Contact with and (suspected) exposure to COVID-19; F17.210 Nicotine dependence, cigarettes, uncomplicated; G47.00 Insomnia, unspecified; I10 Essential (primary) hypertension; J44.9 Chronic obstructive pulmonary disease, unspecified; K21.9 Gastro-esophageal reflux disease without esophagitis; F15.10 Other stimulant abuse, uncomplicated; Z88.8 Allergy status to other drugs, medicaments and biological substances; Z79.899 Other long term (current) drug therapy; Z86.73 Personal history of transient ischemic attack (TIA), and cerebral infarction without residual deficits
CPT/HCPCS: 80053; 80061; 80164; 83036; 84439; 84443; 85025; 86592; 86593; 86780; 99285; A9575; G0480; J0561

== ENCOUNTER 2021-07-27 23:41 | Emergency (ER) | payer MEDICAID ==
[~2021-07-27] VITALS: Ht 170.2 cm; Wt 71.4 kg
[~2021-07-27 23:41] MED LIST changes: -DIPH25CA85 PO; +DIVA-80 PO; +MELA5TAB40 PO; +NALT50TA PO; +OMEG-135 PO; +PALI117D IM; +TRAZ-252 PO
[2021-07-27 23:44] VITALS: BP 95/79
== END 2021-07-28 01:15 | disposition home or self-care (01) ==
LOC: EMS 23:44
DX: F20.0 Paranoid schizophrenia (principal); F15.10 Other stimulant abuse, uncomplicated; M25.561 Pain in right knee; M25.562 Pain in left knee; I10 Essential (primary) hypertension; J45.909 Unspecified asthma, uncomplicated; F17.210 Nicotine dependence, cigarettes, uncomplicated; Z88.8 Allergy status to other drugs, medicaments and biological substances
CPT/HCPCS: 99281; Z7502

== ENCOUNTER 2021-10-21 22:04 | Emergency (ER) | payer MEDICAID ==
[~2021-10-21] VITALS: Ht 172.7 cm; Wt 72.7 kg
[2021-10-21 22:07] VITALS: BP 112/73
== END 2021-10-21 23:11 | disposition left against medical advice (07) ==
LOC: EMS 22:06
DX: F15.10 Other stimulant abuse, uncomplicated (principal); F22 Delusional disorders; F20.9 Schizophrenia, unspecified; I10 Essential (primary) hypertension; J45.909 Unspecified asthma, uncomplicated; F17.210 Nicotine dependence, cigarettes, uncomplicated; Z88.8 Allergy status to other drugs, medicaments and biological substances; Z79.899 Other long term (current) drug therapy
CPT/HCPCS: 99281; Z7502

== ENCOUNTER 2022-08-15 10:08 | Emergency (ER) | payer MEDICAID ==
[~2022-08-15] VITALS: Ht 170.2 cm; Wt 65.9 kg
[2022-08-15] MEDS ORDERED: METHOCARBAMOL 500 MG TABLET PO ONE (11:00)
[2022-08-15] MEDS ORDERED: IBUPROFEN 600 MG TABLET PO ONE (11:00)
[2022-08-15 11:45] VITALS: BP 131/82
[2022-08-15] MEDS ORDERED: METH-659 PO (11:57)
== END 2022-08-15 12:22 | disposition home or self-care (01) ==
LOC: EMS 10:11
DX: M62.838 Other muscle spasm (principal); F41.9 Anxiety disorder, unspecified; J45.909 Unspecified asthma, uncomplicated; I10 Essential (primary) hypertension; F20.9 Schizophrenia, unspecified; R56.9 Unspecified convulsions; J32.9 Chronic sinusitis, unspecified; F17.210 Nicotine dependence, cigarettes, uncomplicated; F15.90 Other stimulant use, unspecified, uncomplicated; Z88.8 Allergy status to other drugs, medicaments and biological substances; Z98.890 Other specified postprocedural states
CPT/HCPCS: 99283